=== PATIENT | female | born 1950 | race Caucasian/White ===

== ENCOUNTER → 2018-04-05 | Outpatient (CLI) | payer OTHER ==
[~2018-04-05] MED LIST: ALEVE220 M1 PO; ASPIRIN325 PO; ATORVASTATIN CA40 MG PO; CELEBREX 200 M200 M1 PO; HYDROCODONE-AP1 EAC6 PO; IBUPROFEN200 M2 PO; KEFLEX500 MG PO; METFORMIN HCL500 MG PO; MOBIC15 MG PO; MULTIVITAMINS1 EAC2 PO; NORCO 5-325 TA1 EAC1 PO; NORCO 7.5-3251 EACH PO; OMEPRAZOLE40 MG PO; PRILOSEC 20 MG20 MG PO; RED YEAST RICE600 MG PO; TRAMADOL 50 MG50 MG PO; ZANTAC 150MG T150 MG PO
== END ==
LOC: M.RAD 08:59
DX: Z12.31 Encounter for screening mammogram for malignant neoplasm of breast (principal); E11.9 Type 2 diabetes mellitus without complications; K21.9 Gastro-esophageal reflux disease without esophagitis; M19.90 Unspecified osteoarthritis, unspecified site

== ENCOUNTER → 2018-11-23 | Outpatient (CLI) | payer OTHER | LOC: M.RAD 08:45 | DX: M79.671 Pain in right foot (principal) ==

== ENCOUNTER → 2019-09-25 | Outpatient (CLI) | payer MEDICARE | LOC: M.MRI 09-20 11:49 | DX: M47.812 Spondylosis without myelopathy or radiculopathy, cervical region (principal); M48.02 Spinal stenosis, cervical region; E04.1 Nontoxic single thyroid nodule; R59.0 Localized enlarged lymph nodes ==

== ENCOUNTER → 2020-12-22 | Outpatient (CLI) | payer MEDICARE ==
[2020-12-22 11:50] LABS: CREATININE 1.4 mg/dL (0.6-1.3)
== END ==
LOC: M.LAB 11:00 → M.CT 11:30
PROVIDERS: ATTEND Family Medicine
DX: I74.10 Embolism and thrombosis of unspecified parts of aorta (principal); K76.0 Fatty (change of) liver, not elsewhere classified; K44.9 Diaphragmatic hernia without obstruction or gangrene